=== PATIENT | female | born 1955 | race Caucasian/White ===

== ENCOUNTER 2020-01-19 10:48 | Emergency (ER) | payer OTHER, SELFPAY ==
[~2020-01-19] VITALS: Ht 157.5 cm; Wt 56.1 kg
[2020-01-19] MEDS ORDERED: ONDANSETRON 2MG/ML, 2ML ONE ×2 (11:24→13:54)
[2020-01-19] MEDS ORDERED: MORPHINE SULFATE 4 MG/ML, 1ML ONE ×2 (11:25→12:42)
[2020-01-19] MEDS ORDERED: SODIUM CHLORIDE 0.9% 1,000ML IVBOLUS ONE (11:30)
[2020-01-19] MEDS ORDERED: ONDANSETRON 2MG/ML, 2ML IVPush ONE ×2 (11:30→14:00)
[2020-01-19] MEDS: MORPHINE SULFATE 4 MG/ML, 1ML IVPush PRN ×2 (11:41→12:44)
[2020-01-19 11:54] LABS: BASOPHILS # (AUTO) 0.04 x10^3/uL (0-0.1); BASOPHILS % (AUTO) 1 % (0-1); EOSINOPHILS # (AUTO) 0.23 x10^3/uL (0-0.4); EOSINOPHILS % (AUTO) 3 % (1-7); LYMPHOCYTES # (AUTO) 1.55 x10^3/uL (1-3.4); LYMPHOCYTES % (AUTO) 23 % (22-44); MD NO; MEAN CORPUSCULAR HEMOGLOBIN 30.6 pg (27.0-34.8); MEAN CORPUSCULAR HGB CONC 33.3 g/dL (32.4-35.8); MEAN CORPUSCULAR VOLUME 91.9 fL (80-100); MONOCYTES # (AUTO) 0.53 x10^3/uL (0.2-0.8); MONOCYTES % (AUTO) 8 % (2-9); NEUTROPHILS # (AUTO) 4.47 x10^3/uL (1.8-6.8); NEUTROPHILS % (AUTO) 66 % (42-75); PLATELET COUNT 244 x10^3/uL (130-400); RED BLOOD COUNT 4.97 x10^6/uL (3.82-5.3); RED CELL DISTRIBUTION WIDTH 13.7 % (9.6-15.2)
[2020-01-19 12:00] LABS: MICROSCOPIC AUTO
[2020-01-19 12:04] LABS: ALANINE AMINOTRANSFERASE 27 U/L (12-78); ALBUMIN 3.8 g/dL (3.4-5.0); CALCIUM 8.5 mg/dL (8.5-10.1); CHLORIDE 110 mmol/L (98-107); CREATININE 0.69 mg/dL (0.55-1.02)
[2020-01-19 12:09] LABS: ALKALINE PHOSPHATASE 85 U/L (45-117); BILIRUBIN,TOTAL 0.4 mg/dL (0.2-1.0); TOTAL PROTEIN 7.1 g/dL (6.4-8.2)
[2020-01-19 12:16] LABS: ANION GAP 3 mmol/L (5-15)
--- NOTE | 2020-01-19 12:17 | NUR ---
piv est labs pending ivf infusing per mar. drowsy after meds. awaiting ct. call andujar in reach.as
[2020-01-19] MEDS ORDERED: OMNIPAQUE 350 MG/ML, 100ML BOTTLE ONE (12:39)
--- NOTE | 2020-01-19 12:56 | NUR ---
back from ct 2nd dose ms for pain awaitin ct nad. as
--- NOTE | 2020-01-19 14:11 | NUR ---
oob to bathroom gait unsteady w/ 1 assist pt c/o nausea more zofran ordered. as
[2020-01-19] MEDS ORDERED: METOCLOPRAMIDE 5 MG/ML, 2ML ONE (14:34)
[2020-01-19 14:39] VITALS: BP 131/61
--- NOTE | 2020-01-19 14:41 | NUR ---
pt feeling nausea reglan order obtained. will wait to dc until pt feels better. as
[2020-01-19] MEDS ORDERED: METOCLOPRAMIDE 5 MG/ML, 2ML IVPush ONE (15:00)
== END 2020-01-19 15:29 | disposition home or self-care (01) ==
LOC: ED 13:02
DX: M54.6 Pain in thoracic spine (principal); R10.31 Right lower quadrant pain; R11.2 Nausea with vomiting, unspecified
CPT/HCPCS: 36415; 74177; 80053; 81001; 83690; 85025; 87086; 96361; 96374; 96375; 96376; 99285; J2270; J2405; J2765; J7030; Q9967; 87147